=== PATIENT | female | born 1985 | race Caucasian/White ===

== ENCOUNTER 2017-02-21 21:22 | Emergency (ER) | payer SELFPAY ==
[~2017-02-21] VITALS: Ht 157.5 cm; Wt 62.8 kg
[~2017-02-21 21:22] MED LIST: ZOFR4TAB3 SL
[2017-02-21 21:40] VITALS: BP 141/101; PULSE 106; RESP 16; TEMP 98.7; O2SAT 100
[2017-02-21] MEDS ORDERED: SODIUM CHLOR 0.9% 1000 ML INJ 1,000 ML IV ONE (22:10)
[2017-02-21] MEDS ORDERED: diphenhydrAMINE HCL 50 MG/ML VIAL IVP ONE (22:15)
[2017-02-21] MEDS ORDERED: KETOROLAC TROMETHAMINE 30 MG/ML (IVP) VIAL IVP ONE (22:15)
[2017-02-21] MEDS ORDERED: PROCHLORPERAZINE INJ 10 MG/2 ML VIAL IVP ONE (22:15)
[2017-02-21 22:19] VITALS: BP 141/101; PULSE 106; RESP 16; TEMP 98.7; O2SAT 100
[2017-02-21 22:42] VITALS: BP 140/89; PULSE 88; RESP 18; O2SAT 98
--- NOTE | 2017-02-21 22:57 | PD ---
HPI Chief Complaint: GI Complaint Time Seen by Provider: 21:43 Travel History International Travel<30 days: No Contact w/Intl Traveler<30days: No Traveled to known affect area: No History of Present Illness HPI This is a 32-year-old female who presents to the emergency department with headache that goes all the way around her head, gradual onset several days ago but worsening this evening associated with nausea and photophobia, constant, moderate severity. She says she's been getting more migraines over the past year. She had several years where she didn't struggle with headaches but as a young person she used to take Fioricet. She says this feels similar to her migraines in the past. She denies any difficulty walking or talking. PFSH Past Medical History Asthma: Yes Blood Disorders: No Anxiety: No Depression: No Cancer: No Cardiovascular Problems: No Chemotherapy: No Cerebrovascular Accident: No Diminished Hearing: No Endocrine: No Gastrointestinal Disorders: Yes (GALLSTONES) GERD: No Genitourinary: No Headaches: No Hepatitis: No Immune Disorder: No Kidney Stones: No Musculoskeletal: No Neurologic: No Psychiatric: No Reproductive: No Respiratory: No Immunizations Current: Yes Migraines: Yes Pneumonia: Yes Radiation Therapy: No Renal Failure: No Seizures: No Ulcer: No ?: Unknown LMP: 01/2017 : 4 Para: 4 Miscarriage: 0 : 0 Ovarian Cysts: Yes Past Surgical History AICD: No Appendectomy: No Arteriovenous Shunt: No Cholecystectomy: Yes Insulin Pump: No Joint Replacement: No Pacemaker: No Other Surgery: No Social History Alcohol Use: No Tobacco Use: Yes (1ppd) 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 HEAD: Atraumatic. Normocephalic. EYES: Pupils equal and round. No injection or drainage. ENT: Moist mucous membranes NECK: Trachea midline. CARDIOVASCULAR: Regular rate and rhythm. No murmur appreciated. RESPIRATORY: Clear to auscultation. Breath sounds equal bilaterally. GASTROINTESTINAL: Abdomen soft, non-tender, nondistended. MUSCULOSKELETAL: No obvious deformities. NEUROLOGICAL: Awake and alert. No obvious cranial nerve deficits. Moving all extremities. No dysarthria or aphasia. Normal visual chen. No upper extremity ataxia. PSYCHIATRIC: Appropriate mood and affect; insight and judgment normal. Data Data Last Documented VS Vital Signs Date Time Temp Pulse Resp B/P Pulse Ox O2 Delivery O2 Flow Rate FiO2 02/21/17 23:31 16 02/21/17 22:42 88 140/89 98 Room Air 02/21/17 22:19 98.7 Orders Ketorolac Inj (Toradol Inj) (02/21/17 22:15) Prochlorperazine Inj (Compazine Inj) (02/21/17 22:15) Diphenhydramine Inj (Benadryl Inj) (02/21/17 22:15) Sodium Chlor 0.9% 1000 Ml Inj (Ns 1000 M (02/21/17 22:10) Dexamethasone Inj (Decadron Inj) (02/21/17 23:30) MDM Medical Decision Making Medical Screen Exam Complete: Yes Emergency Medical Condition: Yes Interpretation(s) Afebrile, tachycardic, hypertensive Differential Diagnosis Migraine, subarachnoid hemorrhage, tension headache, cluster headache Narrative Course This is a 32-year-old female who presents the emergency department with symptoms similar to migraine she's had in the past. Her headache was gradual in onset and she has a normal neurologic exam. An IV was established and she was given Compazine, Toradol and Benadryl as well as IV fluids. She continued to have some headache so she was given Decadron. On reassessment patient feels much better. I think she can be discharged with naproxen. She was requesting Fioricet but I told her that it is no longer recommended in the setting of chronic headaches. Diagnosis Primary Impression: Migraine Qualified Code: G43.009 - Migraine without aura and without status migrainosus , not intractable Patient Instructions: General Instructions Additional Instructions: If you develop severe worsening headache, persistent vomiting, numbness, weakness, difficulty walking or difficulty talking return to the emergency department immediately. Sometimes in the emergency department we did not identify the cause of headaches. If you continued to have headaches it is very important that you followup with your primary care physician as you may need further testing with an MRI. Med/Other Pt SpecificInfo: Prescription(s) given Scripts Naproxen 500 Mg [id number] Mg PO BID PRN (PAIN SCALE 4 TO 10) #20 TAB Prov:Dolly Hernandez MD 02/21/17 Disposition: 01 DISCHARGE HOME Condition: Stable Dolly Hernandez MD Feb 21, 2017 22:57
[2017-02-21] MEDS ORDERED: DEXAMETHASONE SOD PHOS 4 MG/ML VIAL IV PUSH ONE (23:30)
[2017-02-21 23:31] VITALS: RESP 16
[2017-02-21] MEDS ORDERED: NAPR500T PO (23:57)
[2017-02-22 00:14] VITALS: BP 113/78
== END 2017-02-22 00:25 | disposition home or self-care (01) ==
LOC: PHED 21:22
DX: G43.009 Migraine without aura, not intractable, without status migrainosus (principal); F17.200 Nicotine dependence, unspecified, uncomplicated
CPT/HCPCS: 96361; 96374; 96375; 99284; J0780; J1100; J1200; J1885; J7030

== ENCOUNTER 2017-05-29 21:45 | Emergency (ER) | payer SELFPAY ==
[~2017-05-29] VITALS: Ht 157.5 cm; Wt 63.5 kg
[~2017-05-29 21:45] MED LIST changes: +NAPR500T2 PO
[2017-05-29 21:49] VITALS: BP 143/90; PULSE 114; RESP 18; TEMP 98.4; O2SAT 98
[2017-05-29 22:26] LABS: BLOOD, URINE LARGE (NEG); GLUCOSE,URINE NEG (NEG); KETONE, URINE NEG (NEG); NITRITE,URINE POS (NEG)
[2017-05-29 22:37] LABS: URINE COLOR YELLOW (YELLW/STRAW); WBC, URINE INNUM /hpf (0-5)
[2017-05-29 22:38] LABS: BACTERIA, URINE MOD /hpf; TRANSITIONAL EPI CELLS, URINE 0-5 /hpf
[2017-05-29 22:39] LABS: COMMENT (UR) CULTURE INDICATED; CULTURE IF INDICATED CULTURE INDICATED
[2017-05-29 22:40] LABS: RBC, URINE 15-19 /hpf (0-3)
--- NOTE | 2017-05-29 22:56 | PD ---
HPI Chief Complaint: Complaint Time Seen by Provider: 22:48 Travel History International Travel<30 days: No Contact w/Intl Traveler<30days: No Traveled to known affect area: No History of Present Illness HPI The patient is a 32-year-old female that complains of dysuria, frequency and urgency and bilateral flank pain for 2 days. The patient does have a history of IV drug abuse, she admitted this after I pointed out her fairly recent needle tracks. PFSH Past Medical History Asthma: Yes Blood Disorders: No Anxiety: No Depression: No Cancer: No Cardiovascular Problems: No Chemotherapy: No Cerebrovascular Accident: No Diminished Hearing: No Endocrine: No Gastrointestinal Disorders: Yes (GALLSTONES) GERD: No Genitourinary: No Headaches: No Hepatitis: No Immune Disorder: No Kidney Stones: No Musculoskeletal: No Neurologic: No Psychiatric: No Reproductive: No Respiratory: No Immunizations Current: Yes Migraines: Yes Pneumonia: Yes Radiation Therapy: No Renal Failure: No Seizures: No Ulcer: No Tetanus Vaccination: < 5 Years Influenza Vaccination: No ?: Not LMP: 05-25-17 : 4 Para: 4 Miscarriage: 0 : 0 Ovarian Cysts: Yes Past Surgical History AICD: No Appendectomy: No Arteriovenous Shunt: No Cholecystectomy: Yes Insulin Pump: No Joint Replacement: No Pacemaker: No Other Surgery: No Social History Alcohol Use: No Tobacco Use: Yes (1ppd) 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 Her vital signs show heart rate of 114 and blood pressure 143/90 but otherwise normal. SKIN: Focused skin assessment warm/dry. Fairly recent needle tracks are present on the right antecubital fossa. HEAD: Atraumatic. Normocephalic. EYES: Pupils equal and round. No scleral icterus. No injection or drainage. ENT: No nasal bleeding or discharge. Mucous membranes pink and moist. NECK: Trachea midline. No JVD. CARDIOVASCULAR: Regular rate, sinus tachycardia and rhythm. No murmur appreciated. RESPIRATORY: No accessory muscle use. Clear to auscultation. Breath sounds equal bilaterally. GASTROINTESTINAL: Abdomen soft, bilateral flank tenderness is present and there is suprapubic tenderness to direct palpation as well., nondistended. Hepatic and splenic margins not palpable. No guarding or rebound is present. MUSCULOSKELETAL: No obvious deformities. No clubbing. No cyanosis. No edema. NEUROLOGICAL: Awake and alert. No obvious cranial nerve deficits. Motor grossly within normal limits. Normal speech. PSYCHIATRIC: Appropriate mood and affect; insight and judgment normal. Data Data Last Documented VS Vital Signs Date Time Temp Pulse Resp B/P (MAP) Pulse Ox O2 Delivery O2 Flow Rate FiO2 05/29/17 21:49 98.4 114 18 143/90 (107) 98 Orders Orders Urinalysis - C+S If Indicated (05/29/17 22:07) Urine Culture (05/29/17 22:08) Phenazopyridine (Pyridium) (05/29/17 23:00) Nitrofurantoin Monohyd Macrocr (Macrobid (05/29/17 23:00) Ceftriaxone Inj (Rocephin Inj) (05/29/17 23:15) Ketorolac Inj (Toradol Inj) (05/29/17 23:15) Labs Laboratory Tests Test 05/29/17 22:08 Urine Color YELLOW Urine Turbidity MARKED Urine pH 6.0 Urine Specific [place] 1.014 Urine Protein 100 mg/dL Urine Glucose (UA) NEG mg/dL Urine Ketones NEG mg/dL Urine Occult Blood LARGE Urine Nitrite POS Urine Bilirubin NEG Urine Leukocyte Esterase MOD Urine RBC 15-19 /hpf Urine WBC INNUM /hpf Urine WBC Clumps MOD Urine Squamous Epithelial Cells 6-8 /hpf Urine Transitional Epithelial Cells 0-5 /hpf Urine Bacteria MOD /hpf Microscopic Urinalysis Comment CULTURE INDICATED MDM Medical Decision Making Medical Screen Exam Complete: Yes Emergency Medical Condition: Yes Medical Record Reviewed: Yes Interpretation(s) The urine shows marked turbidity, large occult blood, moderate leukocyte esterase with 15-19 red cells and innumerable white cells and moderate white cell clumping's present and moderate bacteria and culture is indicated. Differential Diagnosis Pyelonephritis, cystitis, drug seeking behavior, active IV drug abuse Narrative Course The patient has both pyelonephritis and cystitis. She also has active IV drug abuse according to the recent needle tracks. She will be given Motrin, Pyridium and Macrobid. Diagnosis Primary Impression: Pyelonephritis Additional Impressions: Cystitis History of intravenous drug abuse Additional Instructions: The Pyridium is one tablet 3 times daily as needed for urinary discomfort. The Pyridium turns her urine orange. The Macrobid is one tablet twice daily. Take the Motrin regularly, 1 tablet 3 times daily. Med/Other Pt SpecificInfo: Prescription(s) given Scripts Ibuprofen (Ibuprofen) 600 Mg Tab 600 MG PO TID, #33 TAB 0 Refills Prov: Sreekanth Barajas MD 05/29/17 Phenazopyridine (Pyridium) 100 Mg Tab 100 MG PO Q8HR for Dysuria, #20 TAB 0 Refills Prov: Sreekanth Barajas MD 05/29/17 Nitrofurantoin Monohydrate Macrocrystals (Macrobid) 100 Mg Capsule 100 MG PO BID for Infection for 10 Days, #20 CAP 0 Refills Prov: Sreekanth Barajas MD 05/29/17 Disposition: 01 DISCHARGE HOME Condition: Stable Sreekanth Barajas MD May 29, 2017 22:56
[2017-05-29] MEDS ORDERED: PHENAZOPYRIDINE HCL 200 MG TAB PO ONE (23:00)
[2017-05-29] MEDS ORDERED: NITROFURANTOIN MONOHYD MACROCR 100 MG CAP PO ONE (23:00)
[2017-05-29] MEDS ORDERED: MACR100C2 PO (23:07)
[2017-05-29] MEDS ORDERED: PHEN0.4T PO (23:08)
[2017-05-29] MEDS ORDERED: IBUP-232 PO (23:09)
[2017-05-29] MEDS ORDERED: cefTRIAXone INJ 1,000 MG in SODIUM CHLORIDE 0.9% INJ 100 ML IV ONE (23:15)
[2017-05-29] MEDS ORDERED: KETOROLAC TROMETHAMINE 60 MG/2 ML (IM) VIAL IVP ONE (23:15)
[2017-05-30 00:06] VITALS: BP 136/82
== END 2017-05-30 00:14 | disposition home or self-care (01) ==
LOC: PHED 21:45
DX: N12 Tubulo-interstitial nephritis, not specified as acute or chronic (principal); N30.90 Cystitis, unspecified without hematuria; B96.20 Unspecified Escherichia coli [E. coli] as the cause of diseases classified elsewhere; F19.10 Other psychoactive substance abuse, uncomplicated; F17.200 Nicotine dependence, unspecified, uncomplicated
CPT/HCPCS: 81001; 87077; 87086; 87186; 96365; 96372; 99284; J0696; J1885